=== PATIENT | male | born 1955 | race Caucasian/White ===

== ENCOUNTER 2019-01-06 19:35 | Observation (INO) ==
--- NOTE | 2019-01-06 19:39 | Emergency Department Note ---
Disposition Clinical Impression: Community acquired pneumonia Qualifiers: Laterality: right Lung location: lower lobe of lung Qualified Code(s): J18.1 - Lobar pneumonia, unspecified organism Disposition: Admitted As Inpatient Condition: Good Time of Disposition: 06:18 General Adult HPI - General Stated complaint: Shakes, chills sent from Time Seen by Provider: 01/06/19 19:39 Source: patient, family Mode of arrival: ambulatory Limitations: no limitations Nursing Notes Reviewed: Yes Vital Signs Reviewed: Yes - History of Present Illness HPI Narrative: 63-year-old male past medical history of type 2 diabetes mellitus on oral hypoglycemics and hypertension presenting for a 4 day history of fever/chills. The patient's states that on Tuesday afternoon he was stung by several bees which she has previously had an allergic reaction to however the patient did not develop any rash, no difficulty breathing or any o ther of his typical allergy symptoms. Patient was seen that day at an urgent care and was sent home. On the patient developed fevers and shaking and was again seen in urgent care and prescribed an unknown antibiotic for his condition. Patient's fevers and chills have been getting worse since that time and today he has been noted to have a low-grade fever of 100.9. The patient says that he has some soreness in his neck has full range of motion without stiffness or pain. Upon my initial evaluation, my general impression is that the patient is in mild distress due to a fine generalized tremor. He is otherwise awake, alert, oriented, engaged to conversation and answering questions appropriately. There are no overt lateralizing signs, the patientskin appears to be normal in color, they are not pale, not cyanotic, and not diaphoretic, there is no perceivable rash, they are sitting up in hospital bed interacting appropriately with environment. Onset (ago): day(s) Pain Scale: 0 Associated symptoms: Reports: fever/chills, malaise Treatments Prior to Arrival: none - Related Data Home Medications Medication Instructions Recorded Confirmed Atorvastatin Calcium [Lipitor] 40 mg PO DAILY 01/06/19 01/06/19 Canagliflozin [Invokana] 300 mg PO DAILY 01/06/19 01/06/19 Linagliptin [Tradjenta] 5 mg PO DAILY 01/06/19 01/06/19 Losartan [Cozaar] 50 mg PO DAILY 01/06/19 01/06/19 Metformin HCl [Metformin ER 500 mg PO BID 01/06/19 01/06/19 Osmotic] predniSONE [PredniSONE] 20 mg PO BIDWM 01/06/19 01/06/19 Allergies Allergy/AdvReac Type Severity Reaction Status Date / Time No Known Allergies Allergy Verified 01/06/19 19:49 Review of Systems: *See History of Present Illness for more detail Constitutional: Admits colon fever, chills HEENT: Denies dysphagia/odynophagia, lymphadenopathy Cardiovascular: Denies: chest pain Respiratory: Denies: dyspnea, cough, hemoptysis Gastrointestinal: Denies: abdominal pain, nausea, vomiting, diarrhea, constipation, hematemesis, melena, hematochezia Genitourinary: Denies: hematuria Musculoskeletal: Denies: back pain, neck pain Integumentary: Denies: rash Neurological: Admits to weakness, lightheadedness/dizziness Denies: headache, numbness, paresthesias, difficulty with ambulation. Endocrine: Admits: fatigue Hematological/Lymphatic: Denies: easy bleeding, easy bruising All systems ED: reviewed and negative except as stated. Review of Systems: As Per HPI Physical Exam Constitutional: Patient in mild distress due to tremor and generalized malaise, he is otherwise [id number], engaged to conversation, speech is fluid, answers questions appropriately Neuro: GCS 15, no overt focal neurological deficits Head: Atraumatic, normocephalic Eyes: Pupils equal, round and reactive to light, no scleral icterus, no conjunctival injection Mouth: No lip swelling, perioral cyanosis, drooling, or trismus. Neck: Trachea midline without deviation. Anterior neck is supple without swelling, no overt thyromegaly noted. Chest: Symmetric chest wall rise Heart: Cardiac rhythm and rate are regular with S1 and S2 , no S3 or S4 appreciated, no murmurs, rubs, or clicks. Lungs: Lungs are clear to auscultation bilaterally, without accessory muscle use or prolonged expiratory phase. No wheezes, rhonchi, rales or stridor appreciated. *Abdomen: Abdomen is flat, soft to palpation, normal bowel sounds, no evidence of bruising, surgical incisions, or abnormal mass. No abdominal bruit auscultated. Non-distended, non-rigid, no organomegaly, no ascites appreciated. No pulsatile mass, no tenderness or guarding to palpation in all four quadrants, no rebound Extremities: No evidence of pedal edema, joint swelling or erythema. Pulses/motor intact in all 4 extremities. Psychiatric exam: Patient displays a normal affect and mood for the environment. No overt signs of hallucination. Integumentary: warm, dry, intact, normal color. No rash, cyanosis, diaphoresis, erythema, or pallor - General Limitations: no limitations General appearance: alert, in no apparent distress Course Course Narrative: Patient meeting Sirs criteria at this time I will initiate ED sepsis workup was Tylenol for the management of fever. Patient will get 3 L of fluid we will frequently monitor. Vital Signs Temperature 100.9 F H 01/06/19 19:41 Pulse Rate 107 01/06/19 19:41 Respiratory Rate 20 01/06/19 19:41 Blood Pressure 142/84 01/06/19 19:41 O2 Sat by Pulse Oximetry 98 01/06/19 19:41 Temperature 101.7 F H 01/07/19 04:22 Pulse Rate 87 01/07/19 04:22 Respiratory Rate 14 01/07/19 04:22 Blood Pressure 123/65 01/07/19 04:22 O2 Sat by Pulse Oximetry 97 01/07/19 04:22 Oxygen Delivery Oxygen Delivery Room Air Medical Decision Making - MDM Narrative Medical decision making narrative: Patient was admitted to hospitalist medicine service for their evaluation and management of right lower lobe pneumonia. Blood cultures obtained and patient started on empiric treatment with azithromycin and ceftriaxone while in the ED. The patient is hemodynamically stable time of admission. - Lab Data Lab results reviewed: Yes I reviewed the patient's lab results. Result diagrams: 01/07/19 03:35 01/07/19 03:35 Lab Results 01/06/19 01/06/19 01/06/19 Range/Units 19:55 19:55 19:55 WBC 11.8 H (4.3-11.1) K/mcL RBC 4.36 (4.19-5.50) M/mcL Hgb 13.2 (12.9-16.9) g/dL Hct 39.3 (37.5-50.1) % MCV 90.1 (83.0-100.0) fL MCH 30.3 (28.0-33.3) pg MCHC 33.6 (31.6-35.5) g/dL RDW 13.2 (11.5-14.5) % Plt Count 349 (140-400) K/mcL MPV 9.9 (9.4-12.4) fL Immature Gran % 0.3 (0-4) % Seg Neutrophils % 76.8 % Lymphocytes % 7.8 % Monocytes % 10.6 % Eosinophils % 4.0 % Basophils % 0.5 % Neutrophils # 9.0 H (1.6-8.9) K/mcL Lymphocytes # 0.9 (0.6-4.6) K/mcL Monocytes # 1.3 (0.0-1.3) K/mcL Eosinophils # 0.5 (0.0-0.6) K/mcL Basophils # 0.1 (0.0-0.2) K/mcL PT 13.3 H (9.4-12.1) Seconds INR 1.2 APTT 29.1 (26.0-36.0) Seconds Sodium (136-145) mEq/L Potassium (3.5-5.1) mEq/L Chloride (98-107) mEq/L Carbon Dioxide (23-29) mEq/L BUN (8-23) mg/dL Creatinine (0.70-1.30) mg/dL Est GFR ( Amer) (> 60) Est GFR (Non-Af Amer) (> 60) BUN/Creatinine Ratio (6-26) Glucose (70-105) mg/dL Calculated Osmolality (280-300) Lactic Acid (0.5-2.2) mmol/L Calcium (8.6-10.3) mg/dL Phosphorus (2.7-4.5) mg/dL Magnesium (1.6-2.6) mg/dL Total Bilirubin (0.3-1.0) mg/dL Direct Bilirubin (0.0-0.2) mg/dL Indirect Bilirubin (0.0-1.2) mg/dL AST (13-39) Units/L ALT (7-52) Units/L Alkaline Phosphatase (34-104) Units/L Troponin I (< 0.04) ng/mL Serum Total Protein (6.4-8.9) g/dL Albumin (3.5-5.7) g/dL Globulin (2.4-3.5) g/dL Albumin/Globulin Ratio (1.1-2.2) Lipase (11-82) Units/L Urine Color Yellow (Yellow) Urine Clarity Clear (Clear) Urine pH 6.0 (5.0-8.0) pH Units Ur Specific [place] > 1.030 H (1.010-1.025) Urine Protein Trace (Neg-Trace) mg/dL Urine Glucose (UA) >=1000 H (Normal) mg/dL Urine Ketones Negative (Negative) mg/dL Urine Blood Small H (Negative) Urine Nitrite Negative (Negative) Urine Bilirubin Negative (Negative) Urine Urobilinogen Normal (Normal) mg/dL Ur Leukocyte Esterase Negative (Negative) Urine Microscopic RBC 3-5 H (0-3) per hpf Urine Microscopic WBC 3-5 H (0-3) per hpf Ur Squamous Epith Cells Moderate H (None-Few) per lpf Urine Bacteria None Seen (None-Few) per hpf Hyaline Casts None Seen (None-Few) per lpf Ur Culture Indicated? NO (NO) 01/06/19 01/06/19 01/07/19 Range/Units 19:55 19:55 00:12 WBC (4.3-11.1) K/mcL RBC (4.19-5.50) M/mcL Hgb (12.9-16.9) g/dL Hct (37.5-50.1) % MCV (83.0-100.0) fL MCH (28.0-33.3) pg MCHC (31.6-35.5) g/dL RDW (11.5-14.5) % Plt Count (140-400) K/mcL MPV (9.4-12.4) fL Immature Gran % (0-4) % Seg Neutrophils % % Lymphocytes % % Monocytes % % Eosinophils % % Basophils % % Neutrophils # (1.6-8.9) K/mcL Lymphocytes # (0.6-4.6) K/mcL Monocytes # (0.0-1.3) K/mcL Eosinophils # (0.0-0.6) K/mcL Basophils # (0.0-0.2) K/mcL PT (9.4-12.1) Seconds INR APTT (26.0-36.0) Seconds Sodium 134 L (136-145) mEq/L Potassium 3.8 (3.5-5.1) mEq/L Chloride 97 L (98-107) mEq/L Carbon Dioxide 24 (23-29) mEq/L BUN 25 H (8-23) mg/dL Creatinine 1.29 (0.70-1.30) mg/dL Est GFR ( Amer) > 60 (> 60) Est GFR (Non-Af Amer) 56 L (> 60) BUN/Creatinine Ratio 19 (6-26) Glucose 356 H (70-105) mg/dL Calculated Osmolality 297 (280-300) Lactic Acid 2.7 H 0.9 (0.5-2.2) mmol/L Calcium 8.9 (8.6-10.3) mg/dL Phosphorus 3.8 (2.7-4.5) mg/dL Magnesium 2.1 (1.6-2.6) mg/dL Total Bilirubin 0.5 (0.3-1.0) mg/dL Direct Bilirubin 0.1 (0.0-0.2) mg/dL Indirect Bilirubin 0.4 (0.0-1.2) mg/dL AST 20 (13-39) Units/L ALT 26 (7-52) Units/L Alkaline Phosphatase 56 (34-104) Units/L Troponin I < 0.03 (< 0.04) ng/mL Serum Total Protein 7.4 (6.4-8.9) g/dL Albumin 4.0 (3.5-5.7) g/dL Globulin 3.4 (2.4-3.5) g/dL Albumin/Globulin Ratio 1.2 (1.1-2.2) Lipase 13 (11-82) Units/L Urine Color (Yellow) Urine Clarity (Clear) Urine pH (5.0-8.0) pH Units Ur Specific [place] (1.010-1.025) Urine Protein (Neg-Trace) mg/dL Urine Glucose (UA) (Normal) mg/dL Urine Ketones (Negative) mg/dL Urine Blood (Negative) Urine Nitrite (Negative) Urine Bilirubin (Negative) Urine Urobilinogen (Normal) mg/dL Ur Leukocyte Esterase (Negative) Urine Microscopic RBC (0-3) per hpf Urine Microscopic WBC (0-3) per hpf Ur Squamous Epith Cells (None-Few) per lpf Urine Bacteria (None-Few) per hpf Hyaline Casts (None-Few) per lpf Ur Culture Indicated? (NO) - Radiology Data Radiology results reviewed: Yes I reviewed the patient's radiology results. Chest X-Ray 01/06/19 19:47 IMPRESSION: No acute cardiopulmonary disease. D/ / Raf Miranda MD / Raf Miranda MD Interpreting Provider: Raf Miranda MD Abdomen/Pelvis CT 01/06/19 21:03 IMPRESSION: No obstructive uropathy. No bowel obstruction. No evidence of acute appendicitis. Cholelithiasis. No pericholecystic fluid. Multilobulated masslike opacity in the medial right lower lobe measures up to 4.5 cm. Additional small scattered indeterminate pulmonary nodules in the right lung. Recommend chest CT with intravenous contrast for further evaluation. D/ / Colt Sessions / Colt Sessions Interpreting Provider: Colt Sessions Chest CT 01/07/19 00:01 IMPRESSION: 1. Unusual multilobulated opacity in the medial right lower lobe. 2. Scattered tiny nodules and subsolid nodules. RECOMMENDATIONS: Consider CT at 3 months, PET/CT, or tissue sampling. D/ / Gurvinder Barrow MD / Gurvinder Barrow MD Interpreting Provider: Gurvinder Barrow MD - EKG Data EKG #1 EKG attestation: Yes I reviewed and interpreted this EKG. EKG results narrative: The patients EKG shows a sinus rhythm at a rate of 99 beats per minute, HI interval of 153 milliseconds, a QRS duration of 82 milliseconds, a QT/QTc interval of 340 / 437 milliseconds respectively. There are no significant ST segment elevations, depressions, pathologic Q waves, abnormal T-wave inversions, nor any other signs of acute ischemic change. At this time there is no prior EKG available for comparison.
[2019-01-06] MEDS: 0.9 % Sodium Chloride 1,000 ML IVC SCH ×3 (20:00→20:58)
[2019-01-06 20:16] LABS: Bilirubin,Urine Negative (Negative); Blood,Urine Small (Negative); Clarity,Urine Clear (Clear); Color,Urine Yellow (Yellow); Glucose,Urine (UA) >=1000 mg/dL (Normal); Ketones,Urine Negative (Negative); Leukocyte Esterase,Urine Negative (Negative); Nitrite,Urine Negative (Negative); Protein,Urine Trace mg/dL (Neg-Trace); Specific Gravity,Urine > 1.030 (1.010-1.025); Urobilinogen,Urine Normal (Normal)
[2019-01-06 20:25] LABS: Basophils # 0.1 K/mcL (0.0-0.2); Basophils % 0.5 %; Eosinophils # 0.5 K/mcL (0.0-0.6); Hematocrit 39.3 % (37.5-50.1); Hemoglobin 13.2 g/dL (12.9-16.9); Immature Granulocytes % 0.3 % (0-4); Lymphocytes # 0.9 K/mcL (0.6-4.6); Lymphocytes % 7.8 %; Mean Corpuscular HGB Conc 33.6 g/dL (31.6-35.5); Mean Corpuscular Hemoglobin 30.3 pg (28.0-33.3); Mean Corpuscular Volume 90.1 fL (83.0-100.0); Mean Platelet Volume 9.9 fL (9.4-12.4); Monocytes # 1.3 K/mcL (0.0-1.3); Monocytes % 10.6 %; Platelet Count 349 K/mcL (140-400); Red Blood Count 4.36 M/mcL (4.19-5.50); Red Cell Distribution Width 13.2 % (11.5-14.5); Segmented Neutrophils % 76.8 %; White Blood Count 11.8 K/mcL (4.3-11.1)
[2019-01-06 20:27] LABS: Bacteria,Urine None Seen per hpf (None-Few); Hyaline Casts,Urine None Seen per lpf (None-Few); Squamous Epithelial Cell,Urine Moderate per lpf (None-Few)
[2019-01-06 20:35] LABS: INR 1.2; Prothrombin Time 13.3 Seconds (9.4-12.1)
[2019-01-06 20:37] LABS: Activated Partial Thrombo Time 29.1 Seconds (26.0-36.0)
[2019-01-06 20:49] LABS: Alanine Aminotransferase 26 Units/L (7-52); Albumin/Globulin Ratio 1.2 (1.1-2.2); Alkaline Phosphatase 56 Units/L (34-104); Aspartate Amino Transferase 20 Units/L (13-39); BUN/Creatinine Ratio 19 (6-26); Bilirubin,Direct 0.1 mg/dL (0.0-0.2); Bilirubin,Indirect 0.4 mg/dL (0.0-1.2); Bilirubin,Total 0.5 mg/dL (0.3-1.0); Blood Urea Nitrogen 25 mg/dL (8-23); Calcium 8.9 mg/dL (8.6-10.3); Carbon Dioxide 24 mEq/L (23-29); Chloride 97 mEq/L (98-107); Globulin 3.4 g/dL (2.4-3.5); Glucose 356 mg/dL (70-105); Lipase 13 Units/L (11-82); Magnesium 2.1 mg/dL (1.6-2.6); Osmolality,Calculated 297 (280-300); Phosphorous 3.8 mg/dL (2.7-4.5); Potassium 3.8 mEq/L (3.5-5.1); Sodium 134 mEq/L (136-145); Total Protein 7.4 g/dL (6.4-8.9); Troponin I < 0.03 ng/mL (< 0.04); eGFR For African Americans > 60 (> 60); eGFR For Non-African Americans 56 (> 60)
--- NOTE | 2019-01-06 21:04 | Emergency Department Note ---
Disposition Clinical Impression: Community acquired pneumonia Qualifiers: Laterality: right Lung location: lower lobe of lung Qualified Code(s): J18.1 - Lobar pneumonia, unspecified organism Disposition: Admitted As Inpatient Condition: Good Time of Disposition: 01:35 General Adult HPI - General Chief complaint: ED Fever Stated complaint: Shakes, chills sent from Time Seen by Provider: 01/06/19 19:39 Source: patient, family Mode of arrival: ambulatory Limitations: no limitations Nursing Notes Reviewed: Yes Vital Signs Reviewed: Yes - History of Present Illness Pain Scale: 0 Associated symptoms: Reports: fever/chills, malaise Treatments Prior to Arrival: none - Related Data Home Medications Medication Instructions Recorded Confirmed Atorvastatin Calcium [Lipitor] 40 mg PO DAILY 01/06/19 01/06/19 Canagliflozin [Invokana] 300 mg PO DAILY 01/06/19 01/06/19 Linagliptin [Tradjenta] 5 mg PO DAILY 01/06/19 01/06/19 Losartan [Cozaar] 50 mg PO DAILY 01/06/19 01/06/19 Metformin HCl [Metformin ER 500 mg PO BID 01/06/19 01/06/19 Osmotic] predniSONE [PredniSONE] 20 mg PO BIDWM 01/06/19 01/06/19 Allergies Allergy/AdvReac Type Severity Reaction Status Date / Time No Known Allergies Allergy Verified 01/06/19 19:49 Past Medical History - Past Medical History Medical history: Reports: diabetes, hypertension Psychiatric history: Reports: no psych history - Social History Smoking Status: Never smoker Alcohol use: Reports: none Drug use: Reports: none Physical Exam - General Limitations: no limitations General appearance: alert, in no apparent distress Course Vital Signs Temperature 100.9 F H 01/06/19 19:41 Pulse Rate 107 01/06/19 19:41 Respiratory Rate 20 01/06/19 19:41 Blood Pressure 142/84 01/06/19 19:41 O2 Sat by Pulse Oximetry 98 01/06/19 19:41 Temperature 101.7 F H 01/07/19 04:22 Pulse Rate 87 01/07/19 04:22 Respiratory Rate 14 01/07/19 04:22 Blood Pressure 123/65 01/07/19 04:22 O2 Sat by Pulse Oximetry 97 01/07/19 04:22 Oxygen Delivery Oxygen Delivery Room Air Medical Decision Making - Lab Data Lab results reviewed: Yes I reviewed the patient's lab results. Result diagrams: 01/07/19 03:35 01/07/19 03:35 Lab Results 01/06/19 01/06/19 01/06/19 Range/Units 19:55 19:55 19:55 WBC 11.8 H (4.3-11.1) K/mcL RBC 4.36 (4.19-5.50) M/mcL Hgb 13.2 (12.9-16.9) g/dL Hct 39.3 (37.5-50.1) % MCV 90.1 (83.0-100.0) fL MCH 30.3 (28.0-33.3) pg MCHC 33.6 (31.6-35.5) g/dL RDW 13.2 (11.5-14.5) % Plt Count 349 (140-400) K/mcL MPV 9.9 (9.4-12.4) fL Immature Gran % 0.3 (0-4) % Seg Neutrophils % 76.8 % Lymphocytes % 7.8 % Monocytes % 10.6 % Eosinophils % 4.0 % Basophils % 0.5 % Neutrophils # 9.0 H (1.6-8.9) K/mcL Lymphocytes # 0.9 (0.6-4.6) K/mcL Monocytes # 1.3 (0.0-1.3) K/mcL Eosinophils # 0.5 (0.0-0.6) K/mcL Basophils # 0.1 (0.0-0.2) K/mcL PT 13.3 H (9.4-12.1) Seconds INR 1.2 APTT 29.1 (26.0-36.0) Seconds Sodium (136-145) mEq/L Potassium (3.5-5.1) mEq/L Chloride (98-107) mEq/L Carbon Dioxide (23-29) mEq/L BUN (8-23) mg/dL Creatinine (0.70-1.30) mg/dL Est GFR ( Amer) (> 60) Est GFR (Non-Af Amer) (> 60) BUN/Creatinine Ratio (6-26) Glucose (70-105) mg/dL Calculated Osmolality (280-300) Lactic Acid (0.5-2.2) mmol/L Calcium (8.6-10.3) mg/dL Phosphorus (2.7-4.5) mg/dL Magnesium (1.6-2.6) mg/dL Total Bilirubin (0.3-1.0) mg/dL Direct Bilirubin (0.0-0.2) mg/dL Indirect Bilirubin (0.0-1.2) mg/dL AST (13-39) Units/L ALT (7-52) Units/L Alkaline Phosphatase (34-104) Units/L Troponin I (< 0.04) ng/mL Serum Total Protein (6.4-8.9) g/dL Albumin (3.5-5.7) g/dL Globulin (2.4-3.5) g/dL Albumin/Globulin Ratio (1.1-2.2) Lipase (11-82) Units/L Urine Color Yellow (Yellow) Urine Clarity Clear (Clear) Urine pH 6.0 (5.0-8.0) pH Units Ur Specific [place] > 1.030 H (1.010-1.025) Urine Protein Trace (Neg-Trace) mg/dL Urine Glucose (UA) >=1000 H (Normal) mg/dL Urine Ketones Negative (Negative) mg/dL Urine Blood Small H (Negative) Urine Nitrite Negative (Negative) Urine Bilirubin Negative (Negative) Urine Urobilinogen Normal (Normal) mg/dL Ur Leukocyte Esterase Negative (Negative) Urine Microscopic RBC 3-5 H (0-3) per hpf Urine Microscopic WBC 3-5 H (0-3) per hpf Ur Squamous Epith Cells Moderate H (None-Few) per lpf Urine Bacteria None Seen (None-Few) per hpf Hyaline Casts None Seen (None-Few) per lpf Ur Culture Indicated? NO (NO) 01/06/19 01/06/19 01/07/19 Range/Units 19:55 19:55 00:12 WBC (4.3-11.1) K/mcL RBC (4.19-5.50) M/mcL Hgb (12.9-16.9) g/dL Hct (37.5-50.1) % MCV (83.0-100.0) fL MCH (28.0-33.3) pg MCHC (31.6-35.5) g/dL RDW (11.5-14.5) % Plt Count (140-400) K/mcL MPV (9.4-12.4) fL Immature Gran % (0-4) % Seg Neutrophils % % Lymphocytes % % Monocytes % % Eosinophils % % Basophils % % Neutrophils # (1.6-8.9) K/mcL Lymphocytes # (0.6-4.6) K/mcL Monocytes # (0.0-1.3) K/mcL Eosinophils # (0.0-0.6) K/mcL Basophils # (0.0-0.2) K/mcL PT (9.4-12.1) Seconds INR APTT (26.0-36.0) Seconds Sodium 134 L (136-145) mEq/L Potassium 3.8 (3.5-5.1) mEq/L Chloride 97 L (98-107) mEq/L Carbon Dioxide 24 (23-29) mEq/L BUN 25 H (8-23) mg/dL Creatinine 1.29 (0.70-1.30) mg/dL Est GFR ( Amer) > 60 (> 60) Est GFR (Non-Af Amer) 56 L (> 60) BUN/Creatinine Ratio 19 (6-26) Glucose 356 H (70-105) mg/dL Calculated Osmolality 297 (280-300) Lactic Acid 2.7 H 0.9 (0.5-2.2) mmol/L Calcium 8.9 (8.6-10.3) mg/dL Phosphorus 3.8 (2.7-4.5) mg/dL Magnesium 2.1 (1.6-2.6) mg/dL Total Bilirubin 0.5 (0.3-1.0) mg/dL Direct Bilirubin 0.1 (0.0-0.2) mg/dL Indirect Bilirubin 0.4 (0.0-1.2) mg/dL AST 20 (13-39) Units/L ALT 26 (7-52) Units/L Alkaline Phosphatase 56 (34-104) Units/L Troponin I < 0.03 (< 0.04) ng/mL Serum Total Protein 7.4 (6.4-8.9) g/dL Albumin 4.0 (3.5-5.7) g/dL Globulin 3.4 (2.4-3.5) g/dL Albumin/Globulin Ratio 1.2 (1.1-2.2) Lipase 13 (11-82) Units/L Urine Color (Yellow) Urine Clarity (Clear) Urine pH (5.0-8.0) pH Units Ur Specific [place] (1.010-1.025) Urine Protein (Neg-Trace) mg/dL Urine Glucose (UA) (Normal) mg/dL Urine Ketones (Negative) mg/dL Urine Blood (Negative) Urine Nitrite (Negative) Urine Bilirubin (Negative) Urine Urobilinogen (Normal) mg/dL Ur Leukocyte Esterase (Negative) Urine Microscopic RBC (0-3) per hpf Urine Microscopic WBC (0-3) per hpf Ur Squamous Epith Cells (None-Few) per lpf Urine Bacteria (None-Few) per hpf Hyaline Casts (None-Few) per lpf Ur Culture Indicated? (NO) - Radiology Data Radiology results reviewed: Yes I reviewed the patient's radiology results. Chest X-Ray 01/06/19 19:47 IMPRESSION: No acute cardiopulmonary disease. D/ / Raf Miranda MD / Raf Miranda MD Interpreting Provider: Raf Miranda MD Abdomen/Pelvis CT 01/06/19 21:03 IMPRESSION: No obstructive uropathy. No bowel obstruction. No evidence of acute appendicitis. Cholelithiasis. No pericholecystic fluid. Multilobulated masslike opacity in the medial right lower lobe measures up to 4.5 cm. Additional small scattered indeterminate pulmonary nodules in the right lung. Recommend chest CT with intravenous contrast for further evaluation. D/ / Colt García / Colt García Interpreting Provider: Colt García Chest CT 01/07/19 00:01 IMPRESSION: 1. Unusual multilobulated opacity in the medial right lower lobe. 2. Scattered tiny nodules and subsolid nodules. RECOMMENDATIONS: Consider CT at 3 months, PET/CT, or tissue sampling. D/ / Gurvinder Barrow MD / Gurvinder Barrow MD Interpreting Provider: Gurvinder Barrow MD - EKG Data EKG #1 EKG attestation: Yes I reviewed and interpreted this EKG. EKG results narrative: EKG shows a normal sinus rhythm with ventricular rate of 99. No significant ST segment elevation or depression. No arrhythmia or ectopy. No prior EKG for comparison. Critical Care Time Critical Care Time: Yes Total Critical Care Time: 45 Attestation: Critical care performed: Time is exclusive of separately billable procedures. Time includes: direct patient care, patient reassessment, coordination of patient care, interpretation of data (laboratory data, radiology data, and respiratory data), review of patient's medical records, medical consultation and documentation of patient care. Procedures included in critical care time: Procedures excluded from critical care time: Attestation Statement - Attestation Attestation: I, Dariel Mercado MD, personally evaluated this patient and discussed their management with the resident physician. I reviewed the resident's note and agree with the documented findings, medical decision making, and plan of care. I reviewed the residents documentation and agree with the residents assessment and plan of care. I have personally had face to face time with the patient. I personally supervised and was present for the harrington/critical portions of the following procedures completed by the resident: EKG interpretation. 63-year-old male presents to the emergency department with a three-day history of chills and subjective fever with shakes. He was stung by several bumblebees on the back of his head and neck on Tuesday. 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 He had no rash or itching. No difficulty breathing or swelling. He woke morning with chills and shaking and subjective fever. He states he just felt bad and slept about all day . He developed diarrhea which she described as brown and watery. No blood or melena. The symptoms continued similarly on Tuesday. Today he states he felt better and he actually went out and went shopping but then after getting out and around he started feeling weak and shaky again. He went to urgent care and was referred here for evaluation. He denies any headache or stiff neck. He states his neck is sore where the bee stung him. No nausea or vomiting. No cough or chest pain or shortness of breath. No abdominal pain. No dysuria or hematuria. No increased urinary frequency or urinary retention. He does complain of some lower back pain which is not in the flank area but at about the waistline. No radiation down the legs. He was seen in urgent care last week with some pain and swelling of the right ankle. He was treated with Keflex and some medication for gout. He states the symptoms have resolved. On examination patient is a well-developed well-nourished elderly male in no acute distress. He is awake alert and oriented. There is no cyanosis or diaphoresis. He is having chills and shaking. Neck is supple and nontender with full range of motion. Touches chin to chest without discomfort. Normal rotation and lateral bending and extension as well. Chest is nontender to palpation. Breath sounds are clear and equal bilaterally. Heart regular rate and rhythm. Abdomen is soft and nontender. Normal bowel sounds. No guarding or rebound tenderness. No CVA tenderness. Extremities are nontender with full range of motion. The right ankle is mildly tender which patient states is normal and chronic from an old injury. There is no redness or swelling. No focal neurological deficits. EKG shows a normal sinus rhythm with ventricular rate of 99. No significant ST segment elevation or depression. No arrhythmia or ectopy. No prior EKG for comparison. Chest x-ray negative. Labs reviewed. WBC 11.8. Lactic acid 2.7. Otherwise unremarkable. CT of the abdomen and pelvis shows a masslike opacity in the right lower lobe and a CT of the chest with contrast was recommended and ordered. A sepsis alert was called. Blood cultures obtained. Patient received normal saline fluid bolus and Tylenol for his fever. After the initial CT showed the opacity in the right lower lobe patient was started on Rocephin and Zithromax IV for possible pneumonia. CT just showed an unusual multilobulated opacity in the right lower lung. The hospitalist, Dr. Ding, was consulted and accepted admission of the patient.
[2019-01-06] MEDS ORDERED: Isovue-370 500 ML BOTTLE IVP ONE (23:23)
[2019-01-06] MEDS ORDERED: Azithromycin 500 MG in D5% in Water 250 ML IVPB ONE (23:23)
[2019-01-06] MEDS ORDERED: cefTRIAXone 1,000 MG in 0.9 % Sodium Chloride Mini Bag 100 ML IVPB ONE (23:23)
[2019-01-07] MEDS ORDERED: Ondansetron 4 MG/2 ML VIAL IVP PRN (02:46)
[2019-01-07] MEDS ORDERED: Naloxone 0.4 MG/ML INJ IVP PRN (02:46)
[2019-01-07] MEDS ORDERED: Dextrose Gel 15 GM/37.5 ML TUBE PO PRN ×2 (02:47)
[2019-01-07] MEDS ORDERED: D5% in Water 1,000 ML IVC PRN (02:47)
[2019-01-07] MEDS ORDERED: *HR* Dextrose 50 % in Water (Syg) 50 ML SYRINGE IVP PRN (02:47)
[2019-01-07] MEDS ORDERED: 0.9 % Sodium Chloride 1,000 ML IVC SCH (03:00)
[2019-01-07] MEDS: Insulin LISPRO 300 UNITS/3 ML VIAL SQ SCH ×4 (03:09→18:32)
[2019-01-07 04:50] LABS: Basophils % 0.4 %; Eosinophils # 0.4 K/mcL (0.0-0.6); Eosinophils % 4.9 %; Hematocrit 34.4 % (37.5-50.1); Immature Granulocytes % 0.4 % (0-4); Lymphocytes % 10.6 %; Mean Corpuscular HGB Conc 32.6 g/dL (31.6-35.5); Mean Corpuscular Volume 92.2 fL (83.0-100.0); Mean Platelet Volume 9.8 fL (9.4-12.4); Monocytes # 1.2 K/mcL (0.0-1.3); Monocytes % 12.8 %; Neutrophils # 6.4 K/mcL (1.6-8.9); Platelet Count 285 K/mcL (140-400); Red Blood Count 3.73 M/mcL (4.19-5.50); Red Cell Distribution Width 13.4 % (11.5-14.5); Segmented Neutrophils % 70.9 %; White Blood Count 9.1 K/mcL (4.3-11.1)
[2019-01-07 04:53] LABS: Hemoglobin 11.2 g/dL (12.9-16.9)
[2019-01-07 05:07] LABS: Alanine Aminotransferase 25 Units/L (7-52); Albumin 3.4 g/dL (3.5-5.7); Albumin/Globulin Ratio 1.2 (1.1-2.2); Alkaline Phosphatase 45 Units/L (34-104); Aspartate Amino Transferase 18 Units/L (13-39); BUN/Creatinine Ratio 18 (6-26); Bilirubin,Total 0.4 mg/dL (0.3-1.0); Blood Urea Nitrogen 16 mg/dL (8-23); Calcium 8.3 mg/dL (8.6-10.3); Carbon Dioxide 25 mEq/L (23-29); Chloride 105 mEq/L (98-107); Globulin 2.9 g/dL (2.4-3.5); Glucose 127 mg/dL (70-105); Osmolality,Calculated 289 (280-300); Potassium 4.4 mEq/L (3.5-5.1); Sodium 138 mEq/L (136-145); Total Protein 6.3 g/dL (6.4-8.9); eGFR For African Americans > 60 (> 60); eGFR For Non-African Americans > 60 (> 60)
[2019-01-07] MEDS ORDERED: Acetaminophen 325 MG TABLET PO PRN (06:00)
[2019-01-07] MEDS: *HR* Heparin 5,000 UNIT/ML VIAL SQ SCH ×3 (06:14→22:16)
--- NOTE | 2019-01-07 06:49 | Internal Med History&Physical ---
Date of Encounter: 01/07/19 Time of Encounter: 06:47 Internal Medicine - H&P: HPI Chief complaint: Fever/Chills History of present illness: Mr. Longo is a 63 year old male with a past medical history of hypertension and diabetes who presented to the ED with concerns of intermittent fever and chills. Patient reports she has been having subjective fever and chills which began around Tuesday. These episodes about progressively worse over the past few days. Patient denies any cough, sore throat, shortness of breath, chest pain, nausea, vomiting or rash. Patient does report a 3 day history of loose bowel movements which subsided after he took Imodium on . No reports of stomach pain or cramping. No reports of sick contacts, insect or tick bites. Patient reports he is here from [place] to help his sister move back. He has been here since mid-November. Patient is a former smoker with an approximate [id number] smoking history. He quit approximately 30 years ago. Family history of diabetes. On arrival patient was febrile with a temperature of 100.9. Blood pressure was stable. He had mild tachycardia a size 107. Laboratory workup was notable for a mild leukocytosis of 11.8. Initial lactic acid of 2.7. UA was unremarkable. CT scan of the chest showed a unusual 4.5 cm multilobulated opacity in the medial right lower lobe with scattered tiny nodules and subsequently nodules. CT of the abdomen pelvis was unremarkable. On my assessment patient was lying in bed in no acute distress, pleasant with currently no complaints. Past Med Surg Social Fam HX - Past Medical History Medical history: diabetes, hypertension Psychiatric history: no psych history - Past Surgical History Additional surgical history: b/l knee. b/l inguinal hernias. umbilical hernia. L shoulder. lumbar. right index finger sx - Social History Smoking Status: Former smoker Alcohol use: none Drug use: none Internal Medicine - H&P: Meds Atorvastatin Calcium [Lipitor] 40 mg PO DAILY 01/06/19 [History] Canagliflozin [Invokana] 300 mg PO DAILY 01/06/19 [History] Linagliptin [Tradjenta] 5 mg PO DAILY 01/06/19 [History] Losartan [Cozaar] 50 mg PO DAILY 01/06/19 [History] Metformin HCl [Metformin ER Osmotic] 500 mg PO BID 01/06/19 [History] predniSONE [PredniSONE] 20 mg PO BIDWM 01/06/19 [History] Allergy/AdvReac Type Severity Reaction Status Date / Time No Known Allergies Allergy Verified 01/06/19 19:49 All Systems PM: A 10-system review of systems was performed and is negative for pertinent findings except as documented above in the HPI. - Constitutional Constitutional: no chills, no fever(s), no night sweats - EENT Eyes: no change in vision, no discharge, no pain, no photophobia Ears: no ear discharge, no ear pain, no tinnitus Nose, mouth and throat: no dysphagia, no nasal discharge, no neck pain, no sore throat - Cardiovascular Cardiovascular ROS IM: no chest pain, no diaphoresis, no dyspnea, no lightheadedness, no palpitations, no syncope - Respiratory Respiratory: no cough, no dyspnea, no wheezing, no excessive phlegm production - Gastrointestinal Gastrointestinal: no abdominal pain, no diarrhea, no hematemesis, no hematochezia, no melena, no nausea, no vomiting - Musculoskeletal Musculoskeletal ROS IM: no numbness, no tingling - Integumentary Integumentary IM: no rash, no unusual bruising - Neurological Neurological ROS: no confusion, no convulsions, no focal weakness, no numbness, no tingling, no tremor(s) - Hematologic/Lymphatic Hematologic/Lymphatic: no easy bruising - Constitutional Vitals: Temp Pulse Resp BP Pulse Ox 101.7 F H 87 14 123/65 97 01/07/19 04:22 01/07/19 04:22 01/07/19 04:22 01/07/19 04:22 01/07/19 04:22 Exam: General: Alert and oriented 3 Skin:Normal color, no rash, no lesions. HEENT:EOM, pupils equal, round and reactive. Cardiovascular:Normal S1 & S2, no rubs, murmurs or gallops. No JVD. Pulse regular. Lungs:Normal breath sounds, no wheezes or crackles. Abdomen:Soft, non-tender, no rigidity. Extremities:No deformity, no edema or tenderness, no joint swelling or clubbing. Neurological:Normal cognition and motor skills. Pulses:Carotid and radial pulses normal +2. Rest of the physical exam is non contributory Internal Med - H&P Results - Labs CBC & Chem 7: 01/07/19 03:35 01/07/19 03:35 Labs: Short CBC 01/06/19 01/07/19 Range/Units 19:55 03:35 WBC 11.8 H 9.1 (4.3-11.1) K/mcL Hgb 13.2 11.2 L D (12.9-16.9) g/dL Hct 39.3 34.4 L (37.5-50.1) % Plt Count 349 285 (140-400) K/mcL Neutrophils # 9.0 H 6.4 (1.6-8.9) K/mcL BMP 01/06/19 01/07/19 19:55 03:35 Sodium 134 L 138 Potassium 3.8 4.4 Chloride 97 L 105 Carbon Dioxide 24 25 BUN 25 H 16 Creatinine 1.29 0.90 Glucose 356 H 127 H Calcium 8.9 8.3 L Cardiac Enzymes 01/06/19 Range/Units 19:55 Troponin I < 0.03 (< 0.04) ng/mL Liver Function 01/06/19 01/07/19 Range/Units 19:55 03:35 Total Bilirubin 0.5 0.4 (0.3-1.0) mg/dL Direct Bilirubin 0.1 (0.0-0.2) mg/dL AST 20 18 (13-39) Units/L ALT 26 25 (7-52) Units/L Alkaline Phosphatase 56 45 (34-104) Units/L Albumin 4.0 3.4 L (3.5-5.7) g/dL Urine 01/06/19 Range/Units 19:55 Urine Color Yellow (Yellow) Urine Clarity Clear (Clear) Urine pH 6.0 (5.0-8.0) pH Units Ur Specific [place] > 1.030 H (1.010-1.025) Urine Protein Trace (Neg-Trace) mg/dL Urine Glucose (UA) >=1000 H (Normal) mg/dL - Impressions ITS Impressions Chest X-Ray 01/06/19 19:47 IMPRESSION: No acute cardiopulmonary disease. D/ / Raf Miranda MD / Raf Miranda MD Interpreting Provider: Raf Miranda MD Abdomen/Pelvis CT 01/06/19 21:03 IMPRESSION: No obstructive uropathy. No bowel obstruction. No evidence of acute appendicitis. Cholelithiasis. No pericholecystic fluid. Multilobulated masslike opacity in the medial right lower lobe measures up to 4.5 cm. Additional small scattered indeterminate pulmonary nodules in the right lung. Recommend chest CT with intravenous contrast for further evaluation. D/ / Colt García / Colt García Interpreting Provider: Colt García Chest CT 01/07/19 00:01 IMPRESSION: 1. Unusual multilobulated opacity in the medial right lower lobe. 2. Scattered tiny nodules and subsolid nodules. RECOMMENDATIONS: Consider CT at 3 months, PET/CT, or tissue sampling. D/ / Gurvinder Barrow MD / Gurvinder Barrow MD Interpreting Provider: Gurvinder Barrow MD - Assessment and Plan (1) Fever and chills Current Visit: Yes Status: Acute Assessment and plan: Patient presenting with progressive subjective fever and chills for the past 4-5 days. On arrival found to have a fever with a MAXIMUM TEMPERATURE of 101.7 and mild leukocytosis of 11.8. CT of the chest showing a right lower lobe opacity concerning for possible pneumonia. At this time no other source of an infectious etiology. -Tylenol as needed for fever -Continue antibiotics (2) Community acquired pneumonia Current Visit: Yes Status: Acute Assessment and plan: Patient presenting with fever and chills with mild leukocytosis. CT scan of the chest showing unusual 4.5 cm multiloculated opacity in the medial right lower lobe. Concern for pneumonia. Patient does a previous smoking history of approximately 20 pack years. Patient quit 30 years ago. -At this time we will continue treatment for possible community-acquired pneumonia -We will obtain a respiratory infectious panel -Consider obtaining procalcitonin -Consider pulmonary consult Qualifiers: Laterality: right Lung location: lower lobe of lung Qualified Code(s): J18.1 - Lobar pneumonia, unspecified organism (3) Sepsis Current Visit: Yes Status: Acute Assessment and plan: Patient eating 3 of 4 sirs criteria presenting with fever, leukocytosis and tachycardia. Initial Lactic acid of 2.7. Patient received 1 L fluid bolus in the ED. Repeat lactic acid now 0.9. Currently hemodynamically stable. -Continue antibiotics -Continue fluids -Follow-up blood cultures and urine antigens Qualifiers: Sepsis type: sepsis due to unspecified organism Severe sepsis shock status: without septic shock Qualified Code(s): A41.9 - Sepsis, unspecified organism; R65.20 - Severe sepsis without septic shock (4) Diabetes Current Visit: Yes Status: Acute Assessment and plan: Initial blood glucose over 300. Repeat 127. We will start patient on sliding scale insulin plus basal. ADA diet. Qualifiers: Diabetes mellitus type: type 2 Diabetes mellitus complication status: without complication Qualified Code(s): E11.9 - Type 2 diabetes mellitus without complications (5) Hypertension Current Visit: Yes Status: Acute Assessment and plan: Blood pressure stable. -Resume home antihypertensive Qualifiers: Hypertension type: essential hypertension Qualified Code(s): I10 - Essential (primary) hypertension (6) DVT prophylaxis Current Visit: Yes Status: Acute Assessment and plan: Subcutaneous heparin - Time Spent With Patient Total time spent is greater than 50% in coordination of care (as documented) at patient's floor/unit and/or counseling patient:
[2019-01-07 08:32] LABS: Adenovirus Not Detected (Not Detect); Bordetella Pertussis Not Detected (Not Detect); Chlamydophila pneumoniae Not Detected (Not Detect); Coronavirus 229E Not Detected (Not Detect); Coronavirus HKU1 Not Detected (Not Detect); Coronavirus NL63 Not Detected (Not Detect); Coronavirus OC43 Not Detected (Not Detect); Human Metapneumovirus Not Detected (Not Detect); Human Rhinovirus/Enterovirus Not Detected (Not Detect); Influenza A Subtype 2009 H1 Not Detected (Not Detect); Influenza A Untypeable Not Detected (Not Detect); Influenza B Not Detected (Not Detect); Mycoplasma pneumoniae Not Detected (Not Detect); Parainfluenza Virus 1 Not Detected (Not Detect); Parainfluenza Virus 2 Not Detected (Not Detect); Parainfluenza Virus 3 Not Detected (Not Detect); Parainfluenza Virus 4 Not Detected (Not Detect); Respiratory Syncytial Virus Not Detected (Not Detect)
[2019-01-07] MEDS: predniSONE 20 MG TABLET PO SCH ×2 (08:38→18:33)
--- NOTE | 2019-01-07 14:35 | Pulmonology Consult Note ---
Date of Encounter: 01/07/19 Time of Encounter: 14:33 Assessment and Plan (1) Community acquired pneumonia Current Visit: Yes Status: Acute Agree with treatment for suspected community-acquired pneumonia agree with the blood cultures sputum culture and would send urine antigens for Legionella and strep pneumoniae. Given timing and imaging findings I doubt that fungal serologies would be helpful at this juncture - but may be required down the line Will need 7-10 days based upon clinical response can likely be successfully D escalated to oral respiratory fluoroquinolone to complete duration of therapy Qualifiers: Laterality: right Lung location: lower lobe of lung Qualified Code(s): J18.1 - Lobar pneumonia, unspecified organism (2) Opacity of lung on imaging study Current Visit: Yes Status: Acute I suspect this is related to acute pneumonia. However he is clearly at higher risk for primary lung malignancy and does have a history of atypical infections. For this reason I had recommended bronchoscopy to the patient he said he wanted to think about it prior to proceeding in any event patient will need repeat his CT scan in about 4-6 weeks after treatment for pneumonia. I will have my colleague Dr. Best evaluate the patient in the morning to make final decision I told Mr Longo and the nursing staff that if he was to proceed with bronchoscopy that he should remain nothing by mouth after midnight. (3) COPD (chronic obstructive pulmonary disease) Current Visit: Yes Status: Acute No evidence of exacerbation that would require systemic glucocorticoids Schedule duo nebs every 6 hours Start Symbicort 160/4.5 2 puffs twice a day Thank you for the consultation Do not hesitate to call me with any questions or concerns Ramos Haque [phone] Qualifiers: Emphysema type: unspecified Qualified Code(s): J43.9 - Emphysema, unspecified History of Present Illness Consult date: 01/07/19 Requesting physician: Gianni Mccarthy Reason for consult: pneumonia Chief complaint: Fevers History of present illness: This is a pleasant 63-year-old woman who was admitted to the hospital for pneumonia. He had been complaining of fevers starting on Tuesday with generalized malaise and started having chills and rigors and sweats. Denies any significant cough hemoptysis or intentional weight loss as of late. 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 He says he has been out in [place] and now since November helping his sister moved back to [place]. He was in good health up until the this last week denies any recent travel or sick contacts. No exotic pets in the home. He does have a history of COPD and has been maintained on inhalers in the past he denies any wheezing recently Pulmonary is consulted for a right lower lobe lung opacity and history of fungal pneumonia Past Med Surg Social Fam HX - Past Medical History Medical history: diabetes, hypertension Psychiatric history: no psych history - Past Surgical History Additional surgical history: b/l knee. b/l inguinal hernias. umbilical hernia. L shoulder. lumbar. right index finger sx - Social History Smoking Status: Former smoker Alcohol use: none Drug use: none Medications and Allergies Atorvastatin Calcium [Lipitor] 40 mg PO DAILY 01/06/19 [History] Canagliflozin [Invokana] 300 mg PO DAILY 01/06/19 [History] Linagliptin [Tradjenta] 5 mg PO DAILY 01/06/19 [History] Losartan [Cozaar] 50 mg PO DAILY 01/06/19 [History] Metformin HCl [Metformin ER Osmotic] 500 mg PO BID 01/06/19 [History] predniSONE [PredniSONE] 20 mg PO BIDWM 01/06/19 [History] Allergy/AdvReac Type Severity Reaction Status Date / Time No Known Allergies Allergy Verified 01/06/19 19:49 All Systems: The remainder of the systems were reviewed and are negative Physical Examination Vital Signs: Vital Signs, Last 4 Hours Temp Pulse Resp BP Pulse Ox 01/07/19 12:11 98.8 F 86 16 100/52 95 General appearance: no acute distress Eyes: nonicteric ENT: oropharynx moist Neck: supple Effort: normal Auscultation: bilateral: rhonchi (scattered ) Cardiovascular: regular rate and rhythm Gastrointestinal: normoactive bowel sounds Integumentary: normal Extremities: no cyanosis, no edema, no clubbing Musculoskeletal: no deformities normal mental status, non-focal exam mood appropriate Results - Laboratory Findings CBC and BMP: 01/07/19 03:35 01/07/19 03:35 PT/INR, D-dimer PT 13.3 Seconds (9.4-12.1) H 01/06/19 19:55 Abnormal lab findings: Abnormal lab results WBC 11.8 K/mcL (4.3-11.1) H 01/06/19 19:55 RBC 3.73 M/mcL (4.19-5.50) L 01/07/19 03:35 Hgb 11.2 g/dL (12.9-16.9) L D 01/07/19 03:35 Hct 34.4 % (37.5-50.1) L 01/07/19 03:35 Neutrophils # 9.0 K/mcL (1.6-8.9) H 01/06/19 19:55 PT 13.3 Seconds (9.4-12.1) H 01/06/19 19:55 Sodium 134 mEq/L (136-145) L 01/06/19 19:55 Chloride 97 mEq/L (98-107) L 01/06/19 19:55 BUN 25 mg/dL (8-23) H 01/06/19 19:55 Est GFR (Non-Af Amer) 56 (> 60) L 01/06/19 19:55 Glucose 127 mg/dL (70-105) H 01/07/19 03:35 POC Glucose 239 mg/dL (70-99) H 01/07/19 12:09 Lactic Acid 2.7 mmol/L (0.5-2.2) H 01/06/19 19:55 Calcium 8.3 mg/dL (8.6-10.3) L 01/07/19 03:35 Serum Total Protein 6.3 g/dL (6.4-8.9) L 01/07/19 03:35 Albumin 3.4 g/dL (3.5-5.7) L 01/07/19 03:35 Ur Specific [place] > 1.030 (1.010-1.025) H 01/06/19 19:55 Urine Glucose (UA) >=1000 mg/dL (Normal) H 01/06/19 19:55 Urine Blood Small (Negative) H 01/06/19 19:55 Urine Microscopic RBC 3-5 per hpf (0-3) H 01/06/19 19:55 Urine Microscopic WBC 3-5 per hpf (0-3) H 01/06/19 19:55 Ur Squamous Epith Cells Moderate per lpf (None-Few) H 01/06/19 19:55 - Microbiology Findings Microbiology Findings: Microbiology, Last 48 Hours 01/06/19 19:55 Blood Culture - Preliminary Peripheral Venipuncture Culture is incubating and being continuously monitored for growth. Final report to follow. 01/06/19 19:58 Blood Culture - Preliminary Peripheral Venipuncture Culture is incubating and being continuously monitored for growth. Final report to follow. - Diagnostic Findings Chest x-ray: report reviewed, image reviewed CT scan - chest: report reviewed, image reviewed - Clinical Findings Intake & Output: Intake & Output 01/06/19 01/07/19 01/07/19 23:59 07:59 15:59 Intake Total 3000 / 3000 350 / 470 120 / 470 Output Total 0 / 0 Balance 3000 / 3000 350 / 470 120 / 470 Weight 82.554 kg 83.5 kg Consult Discharge Plan - Plan Referrals: NONE,PCP [Primary Care Provider] -
--- NOTE | 2019-01-07 14:47 | Internal Med Progress Note ---
Hospitalist Progress Note - Encounter Date of Encounter: 01/07/19 Time of Encounter: 14:43 - Subjective Interval History: Patient doing well this morning. Discuss his pulmonary issues with him. Apparently has history of coccidiomycoses. Consult pulm today - Exam Vitals: Temp Pulse Resp BP Pulse Ox 98.8 F 86 16 100/52 95 01/07/19 12:11 01/07/19 12:11 01/07/19 12:11 01/07/19 12:11 01/07/19 12:11 Exam: General: Ill-appearing and in no acute distress HEENT: No erythema of posterior pharynx. No exudates. Lymphatics: No mandibular or cervical lymphadenopathy Cardiovascular: RRR. No murmurs. No chest wall tenderness. Lungs: Clear to auscelltation bilaterally. Regular chest rise. Abdomen: Non-tender. No rebound or gaurding. Nl bowel sounds. Extremities: No edema. 2+ pulses radial and pedal pulses Skin: No rahses, abrasions, or contusions. Nl cap refill. Psych: Nl attention. A&Ox3 Neuro: alteration worker II-XII intact. 5/5 strength. Sensation to light touch and pinprick intact. 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 -Sepsis likely caused by community acquired pneumonia, however, pulmonary findings are somewhat atypical for this -Improving on conventional CAP therapy PLAN: - Continue ceftriaxone and Azithromycin - F/u cultures - Pulmonary consult (2) Community acquired pneumonia Current Visit: Yes Status: Acute Assessment and Plan: See above (3) Opacity of lung on imaging study Current Visit: Yes Status: Acute Assessment and Plan: Chest imaging with multilobulated pulmonary opacity vs mass measuring 4.6x2.9x1.5cm in size. 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 - Pulmology cosult (4) Diabetes Current Visit: Yes Status: Acute Assessment and Plan: Initial blood glucose over 300. Repeat 127. We will start patient on sliding scale insulin plus basal. ADA diet. (5) Hypertension Current Visit: Yes Status: Acute Assessment and Plan: Blood pressure stable. -Resume home antihypertensive DVT Prophylaxis: heparin Internal Medicine: Result - Labs CBC & Chem 7: 01/07/19 03:35 01/07/19 03:35 Labs: Short CBC 01/06/19 01/07/19 Range/Units 19:55 03:35 WBC 11.8 H 9.1 (4.3-11.1) K/mcL Hgb 13.2 11.2 L D (12.9-16.9) g/dL Hct 39.3 34.4 L (37.5-50.1) % Plt Count 349 285 (140-400) K/mcL Neutrophils # 9.0 H 6.4 (1.6-8.9) K/mcL BMP 01/06/19 01/07/19 19:55 03:35 Sodium 134 L 138 Potassium 3.8 4.4 Chloride 97 L 105 Carbon Dioxide 24 25 BUN 25 H 16 Creatinine 1.29 0.90 Glucose 356 H 127 H Calcium 8.9 8.3 L Cardiac Enzymes 01/06/19 Range/Units 19:55 Troponin I < 0.03 (< 0.04) ng/mL Liver Function 01/06/19 01/07/19 Range/Units 19:55 03:35 Total Bilirubin 0.5 0.4 (0.3-1.0) mg/dL Direct Bilirubin 0.1 (0.0-0.2) mg/dL AST 20 18 (13-39) Units/L ALT 26 25 (7-52) Units/L Alkaline Phosphatase 56 45 (34-104) Units/L Albumin 4.0 3.4 L (3.5-5.7) g/dL Urine 01/06/19 Range/Units 19:55 Urine Color Yellow (Yellow) Urine Clarity Clear (Clear) Urine pH 6.0 (5.0-8.0) pH Units Ur Specific [place] > 1.030 H (1.010-1.025) Urine Protein Trace (Neg-Trace) mg/dL Urine Glucose (UA) >=1000 H (Normal) mg/dL - ABG Interpretation ABG results: PT/INR, D-dimer PT 13.3 Seconds (9.4-12.1) H 01/06/19 19:55 - Impressions Impressions Chest X-Ray 01/06/19 19:47 IMPRESSION: No acute cardiopulmonary disease. D/ / Raf Miranda MD / Raf Miranda MD Interpreting Provider: Raf Miranda MD Abdomen/Pelvis CT 01/06/19 21:03 IMPRESSION: No obstructive uropathy. No bowel obstruction. No evidence of acute appendicitis. Cholelithiasis. No pericholecystic fluid. Multilobulated masslike opacity in the medial right lower lobe measures up to 4.5 cm. Additional small scattered indeterminate pulmonary nodules in the right lung. Recommend chest CT with intravenous contrast for further evaluation. D/ / Colt Sessions / Colt Sessions Interpreting Provider: Colt Sessions Chest CT 01/07/19 00:01 IMPRESSION: 1. Unusual multilobulated opacity in the medial right lower lobe. 2. Scattered tiny nodules and subsolid nodules. RECOMMENDATIONS: Consider CT at 3 months, PET/CT, or tissue sampling. D/ / Gurvinder Barrow MD / Gurvinder Barrow MD Interpreting Provider: Gurvinder Barrow MD Consult Discharge Plan - Plan Referrals: NONE,PCP [Primary Care Provider] - (1) Sepsis Qualifiers: Sepsis type: sepsis due to unspecified organism Severe sepsis shock status: without septic shock Qualified Code(s): A41.9 - Sepsis, unspecified organism; R65.20 - Severe sepsis without septic shock (2) Community acquired pneumonia Qualifiers: Laterality: right Lung location: lower lobe of lung Qualified Code(s): J18.1 - Lobar pneumonia, unspecified organism (4) Diabetes Qualifiers: Diabetes mellitus type: type 2 Diabetes mellitus complication status: without complication Qualified Code(s): E11.9 - Type 2 diabetes mellitus without complications (5) Hypertension Qualifiers: Hypertension type: essential hypertension Qualified Code(s): I10 - Essential (primary) hypertension
[2019-01-07] MEDS: cefTRIAXone 2,000 MG in Water for inj. (sterile) 20 ML IVP SCH (18:32)
[2019-01-07] MEDS ORDERED: Isovue-370 500 ML BOTTLE IVP ONE (23:00)
[2019-01-07] MEDS ORDERED: Azithromycin 500 MG in D5% in Water 250 ML IVPB SCH (23:00)
[2019-01-07] MEDS ORDERED: cefTRIAXone 1,000 MG in 0.9 % Sodium Chloride Mini Bag 100 ML IVPB SCH (23:00)
[2019-01-08] MEDS: *HR* Heparin 5,000 UNIT/ML VIAL SQ SCH ×2 (05:20→13:22)
[2019-01-08] MEDS: Insulin LISPRO 300 UNITS/3 ML VIAL SQ SCH ×3 (08:12→17:08)
[2019-01-08] MEDS: predniSONE 20 MG TABLET PO SCH ×2 (08:22→17:08)
[2019-01-08] MEDS ORDERED: Ringers Solution, Lactated 1,000 ML IVC ONE (09:27)
[2019-01-08] MEDS: cefTRIAXone 2,000 MG in Water for inj. (sterile) 20 ML IVP SCH (14:08)
[2019-01-08 14:52] VITALS: BP 133/66
--- NOTE | 2019-01-08 16:01 | Pulmonology Progress Note ---
Date of Encounter: 01/08/19 Time of Encounter: 15:59 Assessment and Plan (1) Abnormal CT scan, chest Current Visit: Yes Status: Acute Although his chest imaging is somewhat atypical appearing for infiltrates from community-acquired pneumonia, his clinical presentation was overall infectious. The patient does report having a needle biopsy of his right lower lobe in the past (which diagnosed coccidioidomycosis infection), and the abnormalities in the right lower lobe could represent scar. He is a previous smoker and is at risk for malignancy as well. The patient is clinically improving, and I think bronchoscopy would be low yield at this time. I recommend that the patient have a repeat CT scan of the chest in 4-6 weeks to ensure radiographic resolution. If the abnormalities persist, PET/CT scan and possible repeat needle guided biopsy may be warranted. I think it would be difficult to obtain a biopsy with bronchoscopy. (2) Community acquired pneumonia Current Visit: Yes Status: Acute The patient has been on azithromycin and ceftriaxone. Legionella urinary antig en was negative, and I would discontinue the azithromycin. I would recommend a 10 day course of antibiotics. As he is improving on ceftriaxone, it would be reasonable to transition him to a by mouth third generation cephalosporin such as Omnicef in order to complete a 10 day course at the time of discharge. Qualifiers: Laterality: right Lung location: lower lobe of lung Qualified Code(s): J18.1 - Lobar pneumonia, unspecified organism (3) COPD (chronic obstructive pulmonary disease) Current Visit: Yes Status: Acute By history. He does not appear to be in acute exacerbation. Continue bronchodilators as needed. I discussed the current plan of care with the patient. I have arranged pulmonary follow-up with Dr. Haque in ~4 weeks. No further recommendations from a pulmonary standpoint. We will sign off. Qualifiers: Emphysema type: unspecified Qualified Code(s): J43.9 - Emphysema, unspecified Subjective Principal diagnosis: Abnormal CT scan of the chest Interval history: The patient reports overall feeling better. He is now beginning to mobilize secretions. Cough persists. No fevers or chills. Objective PUL Vital signs: Last Vital Signs Temp 98.3 F 01/08/19 14:51 Pulse 71 01/08/19 14:51 Resp 17 01/08/19 14:51 BP 133/66 01/08/19 14:51 Pulse Ox 95 01/08/19 14:51 General appearance: no acute distress, alert Eyes: nonicteric ENT: oropharynx moist Neck: supple Effort: normal Auscultation: bilateral: clear Cardiovascular: regular rate and rhythm Gastrointestinal: normoactive bowel sounds, soft, non-tender, non-distended Integumentary: normal Extremities: no cyanosis Musculoskeletal: no deformities normal mental status, non-focal exam mood appropriate, affect normal Results - Laboratory Findings CBC and BMP: 01/07/19 03:35 01/07/19 03:35 PT/INR, D-dimer PT 13.3 Seconds (9.4-12.1) H 01/06/19 19:55 Abnormal lab findings: Abnormal lab results WBC 11.8 K/mcL (4.3-11.1) H 01/06/19 19:55 RBC 3.73 M/mcL (4.19-5.50) L 01/07/19 03:35 Hgb 11.2 g/dL (12.9-16.9) L D 01/07/19 03:35 Hct 34.4 % (37.5-50.1) L 01/07/19 03:35 Neutrophils # 9.0 K/mcL (1.6-8.9) H 01/06/19 19:55 PT 13.3 Seconds (9.4-12.1) H 01/06/19 19:55 Sodium 134 mEq/L (136-145) L 01/06/19 19:55 Chloride 97 mEq/L (98-107) L 01/06/19 19:55 BUN 25 mg/dL (8-23) H 01/06/19 19:55 Est GFR (Non-Af Amer) 56 (> 60) L 01/06/19 19:55 Glucose 127 mg/dL (70-105) H 01/07/19 03:35 POC Glucose 163 mg/dL (70-99) H 01/08/19 06:34 Lactic Acid 2.7 mmol/L (0.5-2.2) H 01/06/19 19:55 Calcium 8.3 mg/dL (8.6-10.3) L 01/07/19 03:35 Serum Total Protein 6.3 g/dL (6.4-8.9) L 01/07/19 03:35 Albumin 3.4 g/dL (3.5-5.7) L 01/07/19 03:35 Ur Specific [place] > 1.030 (1.010-1.025) H 01/06/19 19:55 Urine Glucose (UA) >=1000 mg/dL (Normal) H 01/06/19 19:55 Urine Blood Small (Negative) H 01/06/19 19:55 Urine Microscopic RBC 3-5 per hpf (0-3) H 01/06/19 19:55 Urine Microscopic WBC 3-5 per hpf (0-3) H 01/06/19 19:55 Ur Squamous Epith Cells Moderate per lpf (None-Few) H 01/06/19 19:55 - Microbiology Findings Microbiology Findings: Microbiology, Last 48 Hours 01/06/19 19:57 Legionella Antigen - Final Urine,Clean Catch Streptococcus pneumoniae Antigen (M - Final 01/06/19 19:55 Blood Culture - Preliminary Peripheral Venipuncture Culture is incubating and being continuously monitored for growth. Final report to follow. 01/06/19 19:58 Blood Culture - Preliminary Peripheral Venipuncture Culture is incubating and being continuously monitored for growth. Final report to follow. - Clinical Findings Intake & Output: Intake & Output 01/07/19 01/08/19 01/08/19 23:59 07:59 15:59 Intake Total 250 / 720 160 / 160 Output Total 1300 / 1300 500 / 500 Balance -1050 / -580 -500 / -340 160 / -340 Consult Discharge Plan - Plan Referrals: NONE,PCP [Primary Care Provider] -
--- NOTE | 2019-01-08 18:11 | Electrocardiograph Report ---
[place] [id number] Test Date: 2019-01-06 Pat Name: Sam Longo Department: [id number] Room: 3A44 Gender: Highway Worker: : 1955 Requested By: Clarence Vanessa Order Number: [id number] Reading MD: Chetan Conde Measurements Intervals Kim Rate: 99 P: 76 AL: 153 QRS: -52 QRSD: 82 T: 90 QT: 340 QTc: 437 Interpretive Statements Sinus rhythm Left axis deviation Electronically Signed On 01-08-2019 18:10:22 EDT by Chetan Conde
--- NOTE | 2019-01-08 19:07 | Discharge Summary ---
Orders not resulted at time of discharge: Pending orders 01/06/19 19:55 Culture,Blood [BC] Stat Date of Encounter: 01/08/19 Time of Encounter: 19:03 - Discharge Diagnosis (1) Sepsis Priority: Primary Status: Acute Qualifiers: Sepsis type: sepsis due to unspecified organism Severe sepsis shock status: without septic shock Qualified Code(s): A41.9 - Sepsis, unspecified organism; R65.20 - Severe sepsis without septic shock (2) Community acquired pneumonia Priority: Secondary Status: Acute Qualifiers: Laterality: right Lung location: lower lobe of lung Qualified Code(s): J18.1 - Lobar pneumonia, unspecified organism (3) Opacity of lung on imaging study Priority: Secondary Status: Acute (4) Diabetes Priority: Secondary Status: Acute Qualifiers: Diabetes mellitus type: type 2 Diabetes mellitus complication status: without complication Qualified Code(s): E11.9 - Type 2 diabetes mellitus without complications (5) Hypertension Priority: Secondary Status: Acute Qualifiers: Hypertension type: essential hypertension Qualified Code(s): I10 - Essential (primary) hypertension Hospital course: Mr. Longo is a 63 year old male from [place] with history of smoking and RLL coccidiomycoses 8-10 years ago s/p appropriate treatment presented with sepsis and found to have chest imaging with multilobulated pulmonary opacity measuring 4.6x2.9x1.5cm in size. Pulmonology was consulted and recommended treatment for community-acquired pneumonia and f/u CT scan in 4-6 weeks. If the abnormalities persist, PET/CT scan and possible repeat needle guided biopsy may be warranted. He will have this done in [place] (where coccidiomycosis was diagnosed and treated) and sent with CT scan results. - Time Spent with Patient Total time spent providing and/or coordinating discharge services: - Discharge Medications Prescriptions: New Cefdinir [Omnicef] 300 mg PO BID #14 capsule Continued Losartan [Cozaar] 50 mg PO DAILY Linagliptin [Tradjenta] 5 mg PO DAILY Atorvastatin Calcium [Lipitor] 40 mg PO DAILY Metformin HCl [Metformin ER Osmotic] 500 mg PO BID Canagliflozin [Invokana] 300 mg PO DAILY Montelukast [Singulair] 10 mg PO HS Albuterol Sulfate [Ventolin Hfa] 2 puff IH Q6H PRN PRN Reason: Shortness Of Breath Home Medications: Atorvastatin Calcium [Lipitor] 40 mg PO DAILY 01/06/19 [History] Canagliflozin [Invokana] 300 mg PO DAILY 01/06/19 [History] Linagliptin [Tradjenta] 5 mg PO DAILY 01/06/19 [History] Losartan [Cozaar] 50 mg PO DAILY 01/06/19 [History] Metformin HCl [Metformin ER Osmotic] 500 mg PO BID 01/06/19 [History] Albuterol Sulfate [Ventolin Hfa] 2 puff IH Q6H PRN 01/07/19 [History] Montelukast [Singulair] 10 mg PO HS 01/07/19 [History] Cefdinir [Omnicef] 300 mg PO BID #14 capsule 01/08/19 [Rx] Allergies/Adverse Reactions: Allergy/AdvReac Type Severity Reaction Status Date / Time No Known Allergies Allergy Verified 01/06/19 19:49 Date of admission: 01/07/19 01:44 Primary care physician: PCP NONE Consults: 01/07/19 09:54 Consult to Pulmonology [CONS] Routine Consulting Provider: [facility] Reason for Consult: RLL mass Call Completed: Yes - Constitutional Vitals: Temp Pulse Resp BP Pulse Ox 98.3 F 71 17 133/66 95 01/08/19 14:51 01/08/19 14:51 01/08/19 14:51 01/08/19 14:51 01/08/19 14:51 Exam: General: Ill-appearing and in no acute distress HEENT: No erythema of posterior pharynx. No exudates. Lymphatics: No mandibular or cervical lymphadenopathy Cardiovascular: RRR. No murmurs. No chest wall tenderness. Lungs: Clear to auscelltation bilaterally. Regular chest rise. Abdomen: Non-tender. No rebound or gaurding. Nl bowel sounds. Extremities: No edema. 2+ pulses radial and pedal pulses Skin: No rahses, abrasions, or contusions. Nl cap refill. Psych: Nl attention. A&Ox3 Neuro: magistrate II-XII intact. 5/5 strength. Sensation to light touch and pinprick intact. - Patient Status Disposition: Home, Self-Care Functional capacity at discharge: independent ambulation Overall status at discharge: patient is progressing back to baseline - Discharge Instructions Follow Up With: NONE,PCP [Primary Care Provider] - - Diet and Activity Activity: increase activity as tolerated Diet: advance to your usual diet
== END 2019-01-08 19:57 | disposition home or self-care (01) ==
LOC: EMEROOARM 19:35 → 3ANU 19:35 → SUATTDRO 01-07 01:44 → 3ANU 01-07 02:19
PROVIDERS: ADMIT Internal Medicine; ATTEND Internal Medicine